=== PATIENT | female | born 2000 | race Hispanic/Latino ===

== ENCOUNTER 2024-07-11 00:54 | Emergency (ER) | payer BC, MEDICAID, OTHER ==
[~2024-07-11] VITALS: Ht 167.6 cm; Wt 95.3 kg
[2024-07-11 01:26] LABS: RAPID GROUP A STREP negative (NEGATIVE)
[2024-07-11 01:29] LABS: SARS-CoV-2, RNA, NAAT NEGATIVE SARS CoV-2 (NEGATIVE)
[2024-07-11 01:34] LABS: INFLUENZA TYPE A Negative For Type A (NEGATIVE); INFLUENZA TYPE B Negative For Type B (NEGATIVE)
[2024-07-11] MEDS: acetaMINOPHEN 500 MG TABLET PO ONE (01:41)
[2024-07-11] MEDS: ketOROlac 60 MG VIAL (30MG/ML) IM ONE (01:42)
--- NOTE | 2024-07-11 02:19 | ERN ---
ED Note History of Present Illness Stated Complaint: C/O SORE THROAT WITH COUGH X 4 DAYS Chief Complaint: Sore Throat Time Seen by MD: 00:56 Time Seen by Midlevel: 00:56 Dictation: Patient is a 24-year-old female with no past medical history who presents to the emergency department with complaints of sore throat onset two days ago. Patient reports that two weeks ago she had upper respiratory symptoms of nasal congestion, cough. Denies any fevers. Allergies: Coded Allergies: No Known Allergies (Unverified Allergy, Unknown, 07/11/24) Past Medical History Past Medical History: No Pertinent History Surgical History: None LMP: Jun 14, 2024 RN Note Reviewed/Agreed w/PFSH: Yes Review of System Dictation Constitutional: Negative for fever,chills, and weight loss Eyes: Negative for injury, pain,redness, and discharge ENT: Negative for injury,pain or swelling positive for sore throat Cardiovascular: Negative for chest pain, palpitations, and edema Respiratory: Negative for shortness of breath, cough, and wheezing, Abdomen/GI: Negative for abdominal pain, nausea, vomiting, diarrhea, and constipation Back: Negative for injury and pain : Negative for injury, bleeding and discharge MS/Extremity: Negative for injury and deformity Skin: Negative for rash, and discoloration Neuro: Negative for headache, weakness, numbness, tingling, and seizure Psych: Negative for suicide ideation, homicidal ideation, and hallucinations Initial Vital Sign VS Vital Signs Date Time Temp Pulse Resp B/P (MAP) Pulse Ox O2 Delivery O2 Flow Rate FiO2 07/11/24 00:57 100.2 110 20 126/81 98 Room Air 07/11/24 01:51 0 21 Physical Exam Dictation Vital Signs reviewed General Appearance: Alert, oriented x 3, no acute distress, well developed, nourished. Head and Face: non-traumatic. Eyes: PERRL, pink conjunctivas, eyelid no trauma, anterior chamber with arcus senilis. Ears: Pinnas intact and no signs of trauma or erythema ear canals clear and no discharge TM no erythema Nose: No discharge, no bleeding. Oropharynx: Mouth normal, tongue pink. pharynx clear,no erythema, tonsils + + exudates, no abscesses noted, mucous membrane moist Neck: Supple, non-tender, no thyromegaly, no masses, no JVD, no bruits Breast:Deferred Chest:No tenderness, no crepitus, no paradoxical movement, no retractions Lungs:Clear, well-ventilated, symmetric, no rales, no wheezing, no rhonchi, no stridor, good breath sounds bilaterally Heart: Regular rate, regular rhythm, no murmur, no gallops Vascular: no peripheral edema, Abdomen: Soft, positive bowel sounds, nondistended, no guarding, nontender, no rebound, no masses no hepatomegaly, no splenomegaly, no Nam's sign, no hernias. Rectal: Deferred Genital: Deferred Neurological: Normal speech, motor function intact, sensory function intact Musculoskeletal: Neck nontender, full range of motion, back nontender, full range of motion, Extremities: nontender, full range of motion Skin: Color pink, dry, no turgor, no rash, no lacerations, no abrasions, no contusions. Lymphatic: Deferred Results (Laboratory/Radiology) Laboratory/Radiology Laboratory Tests Test 07/11/24 01:05 07/11/24 01:57 Influenza Type A Antigen Negative For Type A Influenza Type B Antigen Negative For Type B SARS-CoV-2, RNA, NAAT NEGATIVE SARS CoV-2 Group A Streptococcus Rapid negative (NEGATIVE) Urine Color COLORLESS (YELLOW) Urine Appearance CLEAR (CLEAR) Urine pH 5.5 (5.0-8.0) Urine Specific Boutte 1.010 (1.001-1.031) Urine Protein NEGATIVE mg/dL (NEGATIVE) Urine Glucose (UA) NEGATIVE mg/dL (NEGATIVE) Urine Ketones NEGATIVE mg/dL (NEGATIVE) Urine Occult Blood NEGATIVE (NEGATIVE) Urine Nitrate NEGATIVE (NEGATIVE) Urine Bilirubin NEGATIVE mg/dL (NEGATIVE) Urine Urobilinogen 0.2 mg/dL (0.2-1.0) Urine Leukocyte Esterase NEGATIVE Lara/uL Urine HCG, Qualitative NEGATIVE (NEGATIVE) Labs Reviewed?: Yes ED Course ED Course Orders Procedure Category Date Status Time Rapid (Group A Strep) LAB 07/11/24 Complete 00:56 Covid Rna Naat LAB 07/11/24 Complete 00:56 Influenza Type A & B, LAB 07/11/24 Complete Rapid 00:56 ,Urine Test LAB 07/11/24 Complete 01:22 Acetaminophen 500mg PHA 07/11/24 Complete Tab (Tylenol 500mg T 01:30 Ketorolac 60mg/2ml PHA 07/11/24 Complete (Toradol 60mg/2ml) 01:30 Urinalysis Profile LAB 07/11/24 Complete 02:15 Current Medications Medications (Trade) Dose Ordered Sig/Brigette Route PRN Reason Start Time Stop Time Status Last Admin Dose Admin Acetaminophen (TYLenol 500MG TAB) 1,000 mg ONCE ONCE PO 07/11/24 01:30 07/11/24 01:31 DC 07/11/24 01:41 Ketorolac Tromethamine (toRADol 60MG/ 2ML) 60 mg ONCE ONCE IM 07/11/24 01:30 07/11/24 01:31 DC 07/11/24 01:42 Vital Signs Date Time Temp Pulse Resp B/P (MAP) Pulse Ox O2 Delivery O2 Flow Rate FiO2 07/11/24 02:34 99.5 90 18 122/55 99 Room Air* 0 21 07/11/24 01:51 100.0 110 20 130/66 98 Room Air* 0 21 07/11/24 00:57 100.2 110 20 126/81 98 Room Air Medical Decision Making MDM Patient is a 24-year-old female with no past medical history who presents to the emergency department with complaints of sore throat onset two days ago. Patient reports that two weeks ago she had upper respiratory symptoms of nasal congestion, cough. Denies any fevers. Serology negative. Patient's symptoms consistent with viral pharyngitis. Patient no acute distress will be discharged to follow up with PCP. Differential diagnosis: Strep throat, COVID-19 infection, upper respiratory infection, pharyngitis Need for hospitalization: Patient does not meet criteria for hospitalization. There are no social concerns with this patient. DX & DISP Disposition: Discharge Departure Impression: Primary Impression: Viral pharyngitis Condition: Stable Additional Instructions: FOLLOW-UP WITH PRIMARY CARE PROVIDER IN 1 TO 2 DAYS. TAKE MEDICATIONS DIRECTED HERE IN THE EMERGENCY ROOM. OKAY TO CONTINUE HOME MEDICATIONS UNLESS OTHERWISE DISCUSSED DURING YOUR VISIT IN THE EMERGENCY ROOM TODAY. RETURN TO YOUR NEAREST EMERGENCY ROOM IF SYMPTOMS WORSEN OR IF THERE IS NO IMPROVEMENT. CALL 911 IF YOU NEED IMMEDIATE ASSISTANCE. TAKE TYLENOL OR MOTRIN [id number] NEEDED AND IF NO CONTRAINDICATIONS ARE PRESENT. INCREASE ORAL HYDRATION. A WOUND CULTURE OR URINE CULTURE WAS ORDERED HERE IN THE EMERGENCY ROOM DEPARTMENT PLEASE FOLLOW-UP WITH PRIMARY CARE PROVIDER AND ADVISE THEM TO GET REPEAT PORTS FROM OUR FACILITY. IF YOU HAD ANY DAVE WRAP/SPLINTS JOSE T WERE APPLIED HERE, PLEASE DO NOT REMOVE THEM UNTIL YOU SEE YOUR PRIMARY CARE OR SPECIALTY. Referrals: SELF,REFERRAL (PCP) Time of Disposition: 02:15 I have reviewed the case, and I agree with, Diagnosis and Plan I performed a substantive portion of the visit. I have reviewed and personally made and approve the management plan that is documented in the notes by myself with MONIQUE/resident. I acknowledged full responsibility for the patient's management plan. DELIA BOONE Jul 11, 2024 02:18 MARY SIMMONS DO Jul 11, 2024 03:42
[2024-07-11 02:34] VITALS: BP 122/55; PULSE 90; RESP 18; TEMP 99.5; O2SAT 99
[2024-07-11 03:01] LABS: APPEARANCE,URINE CLEAR (CLEAR); BILIRUBIN,URINE NEGATIVE (NEGATIVE); COLOR,URINE COLORLESS (YELLOW); GLUCOSE, URINE (UA) NEGATIVE (NEGATIVE); KETONES,URINE NEGATIVE (NEGATIVE); LEUKOCYTE ESTERASE ,URINE NEGATIVE Leu/uL (NEGATIVE); NITRATE,URINE NEGATIVE (NEGATIVE); OCCULT BLOOD,URINE NEGATIVE (NEGATIVE); PH,URINE 5.5 (5.0-8.0); PROTEIN,URINE NEGATIVE (NEGATIVE); UROBILINOGEN,URINE 0.2 mg/dL (0.2-1.0)
[2024-07-11 03:06] LABS: ADD UA MICROSCOPIC NO
== END 2024-07-11 02:37 | disposition home or self-care (01) ==
LOC: EDH 00:54
DX: J02.8 Acute pharyngitis due to other specified organisms (principal); B97.89 Other viral agents as the cause of diseases classified elsewhere; Z20.822 Contact with and (suspected) exposure to COVID-19
CPT/HCPCS: 99284; 87635; 87880; 87804 ×2; 81003; 81025; 96372; J1885